=== PATIENT | female | born 1965 | race Caucasian/White ===

== ENCOUNTER → 2016-08-28 | Outpatient (CLI) | payer OTHER | LOC: FIMAGING 13:05 | DX: Z12.31 Encounter for screening mammogram for malignant neoplasm of breast (principal); Z80.3 Family history of malignant neoplasm of breast | CPT/HCPCS: G0202 ==

== ENCOUNTER → 2016-09-04 | Outpatient (CLI) | payer OTHER | LOC: FIMAGING 13:42 | PROVIDERS: ATTEND Obstetrics & Gynecology | DX: Z12.39 Encounter for other screening for malignant neoplasm of breast (principal); N63 Unspecified lump in breast ==

== ENCOUNTER → 2016-09-25 | Outpatient (CLI) | payer OTHER | LOC: BMCIMAGING 07:25 | PROVIDERS: ATTEND Internal Medicine Cardiovascular Disease | DX: I10 Essential (primary) hypertension (principal) ==

== ENCOUNTER → 2017-09-02 | Outpatient (CLI) | payer OTHER | LOC: FIMAGING 13:11 | PROVIDERS: ATTEND Obstetrics & Gynecology | DX: Z12.31 Encounter for screening mammogram for malignant neoplasm of breast (principal) ==

== ENCOUNTER → 2017-09-21 | Outpatient (CLI) | payer OTHER | LOC: FIMAGING 12:20 | PROVIDERS: ATTEND Obstetrics & Gynecology | DX: R92.1 Mammographic calcification found on diagnostic imaging of breast (principal) ==

== ENCOUNTER → 2018-03-29 | Outpatient (CLI) | payer OTHER | LOC: FIMAGING 13:33 | PROVIDERS: ATTEND Obstetrics & Gynecology | DX: R92.0 Mammographic microcalcification found on diagnostic imaging of breast (principal) ==

== ENCOUNTER → 2018-04-28 | Day surgery (SDC) | payer OTHER ==
[~2018-04-28] MED LIST: BUPIVACAINE 0.5% 30 ML SDV ONE; LIDOCAINE 1% 300 MG/30 ML SDV ONE; THROMBIN (BOVINE) 5,000 UNIT VIAL TP ONE
== END | disposition home or self-care (01) ==
LOC: FIMAGING 07:22
PROVIDERS: ATTEND Radiology Diagnostic Radiology
DX: C50.911 Malignant neoplasm of unspecified site of right female breast (principal); Z17.0 Estrogen receptor positive status [ER+]; Z80.3 Family history of malignant neoplasm of breast

== ENCOUNTER 2018-06-03 06:35 | Day surgery (SDC) | payer OTHER ==
[2018-06-03] MEDS ORDERED: LR 1,000 ML IV ONE (06:54)
[2018-06-03] MEDS ORDERED: ceFAZolin 2 GM/DEXTROSE 100 ML IV ONE (06:54)
--- NOTE | 2018-06-03 07:48 | PDHPUP ---
History & Physical Update H&P update statement: This history and physical update is based on an assessment of the patient which was completed after admission or registration (within 24 hours), but prior to the surgery/procedure. H&P update: H&P reviewed & patient examined, no change in patient's condition since H&P completed
[2018-06-03] MEDS ORDERED: LIDOCAINE 1% 300 MG/30 ML SDV ONE ×2 (07:49→07:52)
[2018-06-03] MEDS ORDERED: BUPIVACAINE 0.5% 30 ML SDV ONE (07:52)
--- NOTE | 2018-06-03 07:53 | POSTOPPROG ---
Post Op Note Date of Operation: 06/03/18 Surgeon: Margarita Pitt Anesthesiologist: loy Anesthesia: GET(General Endotracheal) Pre-op Diagnosis: R breast DCIS Post-op Diagnosis: same Indication: 53 yo with DCIS Procedure: R needle loc lumpectomy Inf/Abcess present in the surg proc area at time of surgery?: No EBL: Minimal Specimen(s): lumpectomy and additional margins
[2018-06-03] MEDS ORDERED: MIDAZOLAM 2 MG/2 ML VIAL IVP ONE (07:55)
--- NOTE | 2018-06-03 07:55 | PDANEPAE ---
ANE History of Present Illness Right breast lump, here for lumpectomy ANE Past Medical History - Cardiovascular History Hx Hypertension: Yes Hx Arrhythmias: No Hx Chest Pain: No Hx Coronary Artery / Peripheral Vascular Disease: No Hx CHF / Valvular Disease: No Hx Palpitations: No - Pulmonary History Hx Oxygen in Use at Home: No Hx Sleep Apnea: No - Neurologic History Hx Cerebrovascular Accident: No Hx Seizures: No Hx Dementia: No - Endocrine History Hx Diabetes: No - Renal History Hx Renal Disorders: No - Liver History Hx Hepatic Disorders: No - Neurological & Psychiatric Hx Hx Neurological and Psychiatric Disorders: No - Cancer History Hx Cancer: Yes Cancer History Comment: breast ca - Congenital Disorder History Hx Congenital Disorders: No - GI History Hx Gastrointestinal Disorders: Yes Gastrointestinal History Comment: gerd - Chronic Pain History Chronic Pain: No ANE Review of Systems Review of Systems: - Exercise capacity METS (RN): 5 METS ANE Patient History - Allergies Allergies/Adverse Reactions: No Known Allergies Allergy (Unverified 07/12/09 08:03) - Home Medications Home Medications: Lisinopril 20 mg 06/03/18 [Last Taken 06/02/18] Magnesium 06/03/18 [Last Taken 06/02/18] Propranolol HCl 20 mg 06/03/18 [Last Taken 06/02/18] - NPO status NPO Since - Liquids (Date): 06/02/18 NPO Since - Liquids (Time): 22:30 NPO Since - Solids (Date): 06/02/18 NPO Since - Solids (Time): 18:30 - Smoking Hx Smoking Status: Never smoked - Family Anes Hx Family Hx Anesthesia Complications: none ANE Labs/Vital Signs - Vital Signs Blood Pressure: 141/67 Heart Rate: 87 Respiratory Rate: 16 O2 Sat (%): 96 Height: 160.02 cm Weight: 62.596 kg ANE Physical Exam - Airway Neck exam: FROM Mallampati Score: Class 1 Mouth exam: normal dental/mouth exam - Pulmonary Pulmonary: no respiratory distress - Cardiovascular Cardiovascular: regular rate and rhythym - ASA Status ASA Status: II ANE Anesthesia Plan Anesthesia Plan: general endotracheal anesthesia, GA w LMA Total IV Anesthesia: No
[2018-06-03] MEDS ORDERED: fentaNYL 100 MCG/2 ML INJ IVP PRN (08:39)
[2018-06-03] MEDS ORDERED: LIDOCAINE 2% 5 ML SDV ONE (09:30)
[2018-06-03] MEDS ORDERED: DEXAMETHASONE 4 MG/ML VIAL ONE (09:30)
[2018-06-03] MEDS ORDERED: ONDANSETRON 4 MG/2 ML VIAL ONE (09:30)
[2018-06-03] MEDS ORDERED: fentaNYL 100 MCG/2 ML INJ ONE ×2 (09:31→11:11)
[2018-06-03] MEDS ORDERED: PROPOFOL 200 MG/20 ML VIAL ONE (09:31)
[2018-06-03] MEDS ORDERED: LABETALOL HCL 20 MG/4 ML INJ IVP PRN (10:06)
[2018-06-03] MEDS ORDERED: ONDANSETRON 4 MG/2 ML VIAL IVP PRN (10:06)
[2018-06-03] MEDS ORDERED: HYDROmorphONE/DILAUDID 2 MG/ML INJ IVP PRN (10:06)
[2018-06-03] MEDS ORDERED: NALOXONE HCL 0.4 MG/ML INJ IVP PRN (10:06)
[2018-06-03] MEDS ORDERED: HYDROCODONE/APAP 5/325 TAB PO PRN (10:06)
[2018-06-03] MEDS ORDERED: PROMETHAZINE HCL 25 MG/ML INJ IVP PRN (10:06)
[2018-06-03] MEDS ORDERED: MEPERIDINE 25 MG/0.5 ML AMP IVP PRN (10:06)
[2018-06-03] MEDS ORDERED: LR 500 ML IV PRN (10:06)
--- NOTE | 2018-06-03 11:46 | GOP ---
DATE OF OPERATION: 06/03/2018 SURGEON: Margarita Pitt MD ANESTHESIA: General. 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 PROCEDURE PERFORMED: Right needle localized lumpectomy. FINDINGS: Clip within the specimen. SPECIMENS: Lumpectomy and additional margins. ESTIMATED BLOOD LOSS: 10 cc. INDICATIONS: The patient is a 53-year-old woman with negative genetic testing. She was found to hav e ductal carcinoma in-situ. DESCRIPTION OF PROCEDURE: Patient was brought into the operating room, placed supine on the table an d general anesthesia was administered. Her right breast was prepped and draped in the usual sterile fashion. I infiltrated the area with 0.5% Marcaine prior to making incisions. I made an ellipse around the wire. I dissected down beyond the level of the wire, created superior a nd inferior skin flaps. The specimen was marked green anterior, red superior, yellow medial, blue in ferior, orange lateral, black posterior. This was submitted to Radiology. I obtained additional sup erior margin inked red, medial inked yellow, inferior blue, lateral orange, posterior black. Hemosta sis achieved in the cavity. The wound was irrigated. Clips placed to tameka the lumpectomy cavity. Deep layer closed with 3-0 Omero ryl. Skin closed with 0 Vicryl, followed by 4-0 Monocryl. Mastisol Steri-Strips sterile dressing ap plied. She was awakened in the operating room, extubated, transferred to PACU in stable condition. /[id number]/MODL
[2018-06-03 12:59] VITALS: BP 107/67
--- NOTE | 2018-06-03 15:07 | POSTANESTH ---
Post Anesthetic Evaluation Cardiovascular Status: Normal, Stable Respiratory Status: Normal, Stable Level of Consciousness/Mental Status: Can Participate in Eval Pain Control: Adequate, Prn Tx Ordered Nausea/Vomiting Control: Adequate, Prn Tx Ordered Complications Possibly Related to Anesthesia: None Noted
== END 2018-06-03 12:50 | disposition home or self-care (01) ==
LOC: FIMAGING 06:35 → FSGY 12:50
PROVIDERS: ATTEND Surgery
DX: C50.411 Malignant neoplasm of upper-outer quadrant of right female breast (principal); Z17.0 Estrogen receptor positive status [ER+]; Z80.3 Family history of malignant neoplasm of breast; F41.9 Anxiety disorder, unspecified; I10 Essential (primary) hypertension; K21.9 Gastro-esophageal reflux disease without esophagitis
CPT/HCPCS: J0690; J1100; J2250; J2405; J2704; J3010

== ENCOUNTER → 2018-11-03 | Outpatient (CLI) | payer OTHER | LOC: BRMIMAGING 13:18 | PROVIDERS: ATTEND Internal Medicine Hematology & Oncology | DX: N63.21 Unspecified lump in the left breast, upper outer quadrant (principal); Z85.3 Personal history of malignant neoplasm of breast | CPT/HCPCS: 76641-PO ==